=== PATIENT | female | born 1995 | race Caucasian/White ===

== ENCOUNTER 2019-06-16 00:09 | Emergency (ER) | payer MEDICAID ==
[~2019-06-16] VITALS: Ht 162.6 cm; Wt 73.5 kg
[2019-06-16 00:40] VITALS: Ht 162.6 cm; Wt 73.5 kg
[2019-06-16 02:36] LABS: microscopic required? YES; urine erythrocyte 3+ (NEGATIVE)
[2019-06-16 02:57] VITALS: BP 120/75
== END 2019-06-16 03:00 | disposition home or self-care (01) ==
LOC: ED 00:09
PROVIDERS: Emergency Medicine
DX: N10 Acute pyelonephritis (principal)
CPT/HCPCS: 87491; 87591; J0696

== ENCOUNTER 2019-06-16 22:47 | Emergency (ER) | payer MEDICAID ==
[~2019-06-16] VITALS: Ht 162.6 cm; Wt 73.5 kg
[2019-06-16 23:11] VITALS: Ht 162.6 cm; Wt 73.5 kg
[2019-06-17 01:09] VITALS: BP 110/69
== END 2019-06-17 01:09 | disposition home or self-care (01) ==
LOC: ED 22:47
DX: N39.0 Urinary tract infection, site not specified (principal)
CPT/HCPCS: J0696

== ENCOUNTER 2019-11-16 18:12 | Emergency (ER) | payer MEDICAID ==
[~2019-11-16] VITALS: Ht 162.6 cm; Wt 73.9 kg
[2019-11-16 18:16] VITALS: BP 118/71; Ht 162.6 cm; Wt 73.9 kg
== END 2019-11-16 20:07 | disposition home or self-care (01) ==
LOC: ED 18:12
DX: J11.1 Influenza due to unidentified influenza virus with other respiratory manifestations (principal)
CPT/HCPCS: 87804

== ENCOUNTER 2020-01-15 17:31 | Emergency (ER) | payer MEDICAID ==
[~2020-01-15] VITALS: Ht 165.1 cm; Wt 74.4 kg
[2020-01-15 17:33] VITALS: Ht 165.1 cm; Wt 74.4 kg
[2020-01-15 18:47] LABS: BASOPHIL % 0.3 % (0-2); CARBON DIOXIDE 30.2 mmol/L (21-32); CHLORIDE SERUM 106 mmol/L (98-107); CREATININE SERUM 0.8 mg/dL (0.6-1.0); GFR1 > 60 mL/min; GLUCOSE SERUM 89 mg/dL (74-106); PLATELET COUNT 262 x10^3mcL (130-400); POTASSIUM SERUM 4.1 mmol/L (3.5-5.1); RED CELL DISTRIBUTION WIDTH 13.3 % (11.5-14.5); SODIUM SERUM 141 mmol/L (136-145)
[2020-01-15 18:52] LABS: ALBUMIN 3.6 g/dL (3.4-5.0); ALKALINE PHOSPHATASE 76 U/L (46-116); ALT/SGPT 31 U/L (14-59); AST/SGOT 18 U/L (15-37); BILIRUBIN TOTAL 0.3 mg/dL (0.20-1.00); TOTAL PROTEIN, SERUM 7.4 g/dL (6.4-8.2)
[2020-01-15 18:55] VITALS: BP 97/62
== END 2020-01-15 18:55 | disposition home or self-care (01) ==
LOC: ED 17:31
PROVIDERS: Emergency Medicine
DX: G44.209 Tension-type headache, unspecified, not intractable (principal)
CPT/HCPCS: 36415; J1885